=== PATIENT | male | born 1995 | race African-American/Black ===

== ENCOUNTER 2017-04-09 17:50 | Emergency (ER) | payer OTHER ==
[~2017-04-09] VITALS: Ht 193 cm; Wt 68.0 kg
[~2017-04-09 17:50] MED LIST: TESSALON PERLE100 MG PO; ZPAK PO
[2017-04-09] MEDS ORDERED: PREDNISONE 20 M20 MG PO (20:18)
[2017-04-09] MEDS ORDERED: PROVENTIL HFA6.7 G1 INH (20:18)
[2017-04-09] MEDS ORDERED: TESSALON PERLE100 MG PO (20:18)
== END 2017-04-09 20:15 | disposition left against medical advice (07) ==
LOC: ER 17:50
DX: J20.9 Acute bronchitis, unspecified (principal); F17.210 Nicotine dependence, cigarettes, uncomplicated

== ENCOUNTER 2019-04-08 20:07 | Emergency (ER) | payer OTHER ==
[~2019-04-08] VITALS: Ht 182.9 cm; Wt 69.0 kg
[~2019-04-08 20:07] MED LIST changes: +PREDNISONE 20 M20 MG PO; +PROVENTIL HFA6.7 G1 INH
[2019-04-08 22:18] VITALS: BP 129/67
== END 2019-04-08 22:19 | disposition home or self-care (01) ==
LOC: ER 20:07
PROVIDERS: Nurse Practitioner
DX: Z11.3 Encounter for screening for infections with a predominantly sexual mode of transmission (principal); F17.210 Nicotine dependence, cigarettes, uncomplicated